=== PATIENT | male | born 1965 | race Caucasian/White ===

== ENCOUNTER 2016-04-09 12:17 | Observation (INO) | payer MEDICARE, OTHER ==
[2016-04-09] MEDS ORDERED: HYDROmorphone 1 MG/ML 1 ML SYRINGE IVP STA ×2 (13:03→14:08)
[2016-04-09] MEDS ORDERED: SODIUM CHLORIDE 0.9% 1,000 ML IV ONE (13:03)
[2016-04-09] MEDS ORDERED: ONDANSETRON 4 MG/2 ML VIAL IVP STA (13:03)
--- NOTE | 2016-04-09 13:36 | ED ---
Abdominal Pain HPI - General Chief Complaint: Abdominal Pain Stated Complaint: Abdominal Pain Time Seen by Provider: 04/09/16 12:50 Source: patient Mode of arrival: ambulatory Limitations: no limitations - History of Present Illness Initial Comments: Is a 51-year-old male with a history of chronic pancreatitis secondary to alcohol abuse who presents emergency department for epigastric abdominal pain. He states is been going on for the last day and worsening. He is also had some nausea and vomiting. He is typically on Percocet and Zofran at home however he states that these medications have not been working. He denies any blood in the vomit. He denies any constipation or or obstipation. He denies any fevers or chills. He does have history of herpes however denies any current outbreaks. He does have a rash on his abdomen which she gets just prior to his herpes outbreaks however. He denies any itching. States that the pain is typical for his pancreatitis. - Related Data Home Medications Medication Instructions Recorded Confirmed Lipase/Protease/Amylase [Brien Samuel 2 cap PO AC-TID 12/07/13 04/09/16 24,000 Units Capsule] Metoprolol Tartrate [Lopressor] 25 mg PO BID 12/07/13 04/09/16 Omeprazole [PriLOSEC] 20 mg PO AC-BID 12/07/13 04/09/16 Ondansetron HCl 8 mg PO Q8HR PRN 12/07/13 04/09/16 oxyCODONE HCL/ACETAMINOPHEN 1 tab PO Q6H PRN 12/07/13 04/09/16 [Oxycodone-Acetaminophen 10-325] Butalb/Acetaminophen/Caffeine 1 tab PO Q8H PRN 11/06/15 04/09/16 [Banjco-Wexqwduo-Tpwa 50-325-40] Promethazine [Phenergan] 25 mg PO Q6H PRN 04/09/16 04/09/16 busPIRone HCl [Buspar] 5 mg PO TID 04/09/16 04/09/16 Allergies Allergy/AdvReac Type Severity Reaction Status Date / Time latex Allergy Unknown Verified 04/09/16 13:04 Review of Systems ROS Statement: Those systems with pertinent positive or pertinent negative responses have been documented in the HPI. ROS Other: All systems not noted in ROS Statement are negative. Past Medical History Past Medical History: GERD/Reflux, Hypertension, Pneumonia Additional Past Medical History / Comment(s): PANCREATITS, LUNG NODULES, BLOOD CLOT RT ARM, ARTHRITIS, PAST ULCER,MIGRAINES, HANDS /FEET ALWAYS FEEL COLD. genital herpes History of Any Multi-Drug Resistant Organisms: None Reported Past Surgical History: Adenoidectomy, Tonsillectomy Additional Past Surgical History / Comment(s): ,FEEDING TUBE/AND REMOVAL, LH HAND TRIGGER THUMB SX, EGD in 2010. MRCP. Past Anesthesia/Blood Transfusion Reactions: No Reported Reaction Past Psychological History: Anxiety, Depression Smoking Status: Current every day smoker Past Alcohol Use History: None Reported Additional Past Alcohol Use History / Comment(s): STARTEED SMOKING AT AGE 18, SMOKES 1 PPD, GIEVN A SMOKING CESSATION BOOKLET.PT STATED USED TO DRINK 6-12 BEERS PER DAY QUIT APPROX 2005 Past Drug Use History: None Reported Additional Drug Use History / Comment(s): MEDICAL MARIJUANA - Past Family History Father Additional Family Medical History / Comment(s): AT AGE 56 LUNG CANCER, SMOKED 1PPD AND WORKED A [employer]. Mother Family Medical History: COPD General Exam - General Exam Comments Initial Comments: Constitutional: Awake alert Appears comfortable Head: Normocephalic atraumatic Eyes: no conjunctival injection No scleral icterus EOMI Neck: No JVD Supple Heart: Regular rate rhythm normal S1-S2 no murmurs Lungs: Clear to auscultation bilaterally No wheezing No rales Abdomen: Soft nondistended entered a palpation in the epigastric region without rebound or guarding Extremities: Non edematous DP pulses intact Radial pulses intact Neuro: A&Ox3 No focal neurologic deficits Psych: Appropriate mood and affect Limitations: no limitations Course Vital Signs 04/09/16 04/09/16 04/09/16 12:44 13:17 14:00 Temperature 98.2 F 98.2 F 98.2 F Pulse Rate 61 83 56 L Respiratory 18 16 16 Rate Blood Pressure 138/90 106/68 97/59 O2 Sat by Pulse 100 100 100 Oximetry Medical Decision Making - Medical Decision Making Is a 51-year-old male with a history of chronic pancreatitis who presents emergency department for epigastric pain. He does not feel significantly better after IV opiate medications. He is still nauseated and unable to keep down by mouth fluids after antiemetics. This time I feel that he needs to come in for IV fluids and nothing by mouth. I spoke with Dr. Hill except admission. - Lab Data Result diagrams: 04/09/16 13:00 04/09/16 13:00 Lab Results 04/09/16 04/09/16 Range/Units 13:00 13:00 WBC 8.5 (3.8-10.6) k/uL RBC 4.58 (4.30-5.90) m/uL Hgb 14.4 (13.0-17.5) gm/dL Hct 43.2 (39.0-53.0) % MCV 94.2 (80.0-100.0) fL MCH 31.5 (25.0-35.0) pg MCHC 33.4 (31.0-37.0) g/dL RDW 12.8 (11.5-15.5) % Plt Count 264 (150-450) k/uL Neutrophils % 68 % Lymphocytes % 23 % Monocytes % 4 % Eosinophils % 3 % Basophils % 1 % Neutrophils # 5.8 (1.3-7.7) k/uL Lymphocytes # 1.9 (1.0-4.8) k/uL Monocytes # 0.4 (0-1.0) k/uL Eosinophils # 0.2 (0-0.7) k/uL Basophils # 0.0 (0-0.2) k/uL Sodium 140 (137-145) mmol/L Potassium 5.0 (3.5-5.1) mmol/L Chloride 106 (98-107) mmol/L Carbon Dioxide 24 (22-30) mmol/L Anion Gap 10 mmol/L BUN 13 (9-20) mg/dL Creatinine 1.14 (0.66-1.25) mg/dL Est GFR (MDRD) Af Amer >60 (>60 ml/min/1.73 sqM) Est GFR (MDRD) Non-Af >60 (>60 ml/min/1.73 sqM) Glucose 100 H (74-99) mg/dL Calcium 9.3 (8.4-10.2) mg/dL Total Bilirubin 0.4 (0.2-1.3) mg/dL AST 18 (17-59) U/L ALT 24 (21-72) U/L Alkaline Phosphatase 65 (38-126) U/L Total Protein 6.8 (6.3-8.2) g/dL Albumin 3.9 (3.5-5.0) g/dL Amylase 129 H (30-110) U/L Lipase 687 H (23-300) U/L Serum Alcohol <10 mg/dL Disposition Clinical Impression: Chronic pancreatitis, Intractable abdominal pain Disposition: ADMITTED IP TO THIS [facility] Condition: Stable
[2016-04-09 13:40] LABS: Basophils % (A) 1 %; CH 31.5; CHCM 33.5; Eosinophils # (A) 0.2 k/uL (0-0.7); Eosinophils % (A) 3 %; HCT 43.2 % (39.0-53.0); HDW 2.33; HGB 14.4 gm/dL (13.0-17.5); Luc # (Auto) 0.17; Luc % (Auto) 2; Lymphocytes # (A) 1.9 k/uL (1.0-4.8); Lymphocytes % (A) 23 %; MCH 31.5 pg (25.0-35.0); MCHC 33.4 g/dL (31.0-37.0); MCV 94.2 fL (80.0-100.0); Monocytes # (A) 0.4 k/uL (0-1.0); Monocytes % (A) 4 %; Neutrophils # (A) 5.8 k/uL (1.3-7.7); Neutrophils % (A) 68 %; RBC 4.58 m/uL (4.30-5.90); RDW 12.8 % (11.5-15.5); WBC 8.5 k/uL (3.8-10.6); WBC (Perox) 8.68
--- NOTE | 2016-04-09 13:49 | XR ---
EXAMINATION TYPE: XR abdomen complete w decub DATE OF EXAM: 04/09/2016 1:41 PM COMPARISON: 11/06/2015 HISTORY: Upper abdominal quadrant pain and vomiting TECHNIQUE: Single view of the chest and 2 views of the abdomen are submitted. FINDINGS: There is no evidence for pneumoperitoneum. The bowel gas pattern is nonspecific. Surgical clips in the right upper quadrant noted. Arthropathy of the hip joints noted. Surgical clip in the pelvis noted and nonspecific calcifications are seen. Appears stable from previous exam and li tashia vascular. IMPRESSION: Nonspecific abdomen
[2016-04-09 13:51] LABS: ALT 24 U/L (21-72); AST 18 U/L (17-59); Alcohol <10 mg/dL; Alkaline Phosphatase 65 U/L (38-126); Amylase 129 U/L (30-110); Anion Gap 10 mmol/L; Blood Urea Nitrogen 13 mg/dL (9-20); Calcium 9.3 mg/dL (8.4-10.2); Carbon Dioxide 24 mmol/L (22-30); Chloride 106 mmol/L (98-107); Glucose 100 mg/dL (74-99); Non-African American GFR(MDRD) >60 (>60 ml/min/1.73 sqM); Sodium 140 mmol/L (137-145); Total Bilirubin 0.4 mg/dL (0.2-1.3); Total Protein 6.8 g/dL (6.3-8.2)
[2016-04-09] MEDS ORDERED: NALOXONE 0.4 MG/ML 1 ML VIAL IV PRN (14:46)
[2016-04-09] MEDS: SODIUM CHLORIDE 0.9% 1,000 ML IV SCH ×2 (15:03→22:25)
[2016-04-09] MEDS: LIPASE 5,000/PROTEASE 17,000/AMYLASE 27,0000 PO SCH (17:03)
[2016-04-09] MEDS: busPIRone HCl 5 MG TAB PO SCH ×2 (17:03→22:25)
[2016-04-09] MEDS: HYDROmorphone 1 MG/ML 1 ML SYRINGE IV PRN ×3 (17:37→23:55)
[2016-04-09] MEDS: ONDANSETRON 4 MG/2 ML VIAL IVP PRN (20:28)
[2016-04-09] MEDS: METOPROLOL TARTRATE 25 MG TAB PO SCH (22:25)
[2016-04-10] MEDS: HYDROmorphone 1 MG/ML 1 ML SYRINGE IV PRN ×3 (03:10→08:55)
[2016-04-10] MEDS: SODIUM CHLORIDE 0.9% 1,000 ML IV SCH ×3 (05:19→15:25)
[2016-04-10] MEDS: LIPASE 5,000/PROTEASE 17,000/AMYLASE 27,0000 PO SCH ×3 (08:01→17:34)
[2016-04-10] MEDS: busPIRone HCl 5 MG TAB PO SCH ×2 (08:03→15:24)
[2016-04-10] MEDS: METOPROLOL TARTRATE 25 MG TAB PO SCH (08:03)
[2016-04-10 08:37] VITALS: RESP 16
[2016-04-10] MEDS: ONDANSETRON 4 MG/2 ML VIAL IVP PRN (08:56)
[2016-04-10] MEDS ORDERED: METOPROLOL TARTRATE 12.5 MG TAB PO SCH (10:11)
[2016-04-10] MEDS ORDERED: BUTALB/APAP/CAFF 50-325-40MG TAB PO PRN (10:12)
[2016-04-10] MEDS ORDERED: PANTOPRAZOLE 40 MG/10 ML VIAL IVP SCH (10:15)
--- NOTE | 2016-04-10 11:45 | HP ---
DATE OF ADMISSION: Patient is a 51-year-old gentleman with a history of previous pancreatitis in the past and patient follows at [facility]. Patient apparently had alcoholic pancreatitis, used to be an alcoholic. Quit alcohol in 2009. Patient does not have his gallbladder anymore. He came in with complaints of epigastric abdominal pain, sharp, 9/10 in severity, radiating to the back, associated with some nausea, and patient has elevated lipase of 687, not high enough to say pancreatitis. No history of diabetes mellitus. His symptoms did improve. Will advance the diet. My suspicion is low for pancreatitis. Patient may have gastritis. Patient will be started on Protonix. If patient is able to tolerate soft diet by evening, patient will be discharged. The patient does have lipase elevation and amylase elevation, but they are not high enough to say pancreatitis. If patient is not able to tolerate his diet, will hold his discharge and will repeat lipase tomorrow. Patient is on pancreatic enzyme supplementation as well. That can increase the lipase. Home medications include: Creon supplementation, metoprolol, omeprazole, ondansetron, oxycodone, acetaminophen, Fioricet, Phenergan, buspirone. ALLERGIES: ALLERGIC TO LATEX. REVIEW OF SYSTEMS: CONSTITUTIONAL: No fever, no malaise, no fatigue. HEENT: No recent visual problems or hearing problems. Denied any sore throat. CARDIOVASCULAR: No chest pain, orthopnea, PND, no palpitations, no syncope. PULMONARY: No shortness of breath, no cough, no hemoptysis. GASTROINTESTINAL: As described in HPI. Patient denied any diarrhea. NEUROLOGICAL: No headaches, no weakness, no numbness. HEMATOLOGICAL: Denies any bleeding or petechiae. GENITOURINARY: Denies any burning micturition, frequency, or urgency. MUSCULOSKELETAL/RHEUMATOLOGICAL: Denies any joint pain, swelling, or any muscle pain. ENDOCRINE: Denies any polyuria or polydipsia. The rest of the 14 point review of systems is negative. PAST MEDICAL HISTORY: Gastroesophageal reflux disease, hypertension, pneumonia, previous history of pancreatitis, adenoidectomy, tonsillectomy, cholecystectomy in the past. Anxiety, depression. SOCIAL HISTORY: The patient does smoke. Denied any present alcohol abuse. He used to drink 6 to 12 beers a day, quit drinking in 2009. Occasional use of marijuana. Patient does use medical marijuana. FAMILY HISTORY: Father at age 56 of lung cancer. PHYSICAL EXAMINATION: GENERAL: The patient is alert and oriented x3, not in any acute distress. Well developed, well nourished. HEENT: Pupils are round and equally reacting to light. EOMI. No scleral icterus. No conjunctival pallor. Normocephalic, atraumatic. No pharyngeal erythema. No thyromegaly. CARDIOVASCULAR: S1 and S2 present. No murmurs, rubs, or gallops. PULMONARY: Chest is clear to auscultation, no wheezing or crackles. ABDOMEN: Abdomen is soft, nondistended, good bowel sounds. Patient does have minimal epigastric abdominal tenderness. MUSCULOSKELETAL: No joint swelling or deformity. EXTREMITIES: No cyanosis, clubbing, or pedal edema. NEUROLOGICAL: Gross neurological examination did not reveal any focal deficits. SKIN: No rashes. LABORATORY DATA: CBC and CMP are abnormal for mildly elevated amylase and lipase. ASSESSMENT AND PLAN: 1. Epigastric abdominal pain. Possibility of pancreatitis is low. If he is able to tolerate diet, patient will be discharged on Prilosec which he is taking twice a day. 2. Hypertension. Patient is on metoprolol. Patient's, actually, blood pressure is on the low-normal side along with mild bradycardia. Because of which I will cut down the metoprolol to 12.5 instead of 25 b.i.d. My suspicion is low that patient is actually diabetic. 3. Chronic pancreatitis for which patient is on pancreatic enzyme supplementation which will be continued. 4. Chronic pain syndrome. 5. Depression. 6. Alcohol abuse history in the past.
[2016-04-10] MEDS: oxyCODONE-APAP 10-325MG 1 EACH TAB PO PRN ×2 (12:33→17:34)
[2016-04-10 16:25] VITALS: BP 144/90; PULSE 60; TEMP 97
== END 2016-04-10 18:55 | disposition home or self-care (01) ==
LOC: EC 12:17 → 4MS4W 14:47
PROVIDERS: ADMIT Internal Medicine; ATTEND Internal Medicine
DX: R10.13 Epigastric pain (principal); K86.0 Alcohol-induced chronic pancreatitis; F12.90 Cannabis use, unspecified, uncomplicated; F17.200 Nicotine dependence, unspecified, uncomplicated; F32.9 Major depressive disorder, single episode, unspecified; F41.9 Anxiety disorder, unspecified; G89.4 Chronic pain syndrome; I10 Essential (primary) hypertension; K21.9 Gastro-esophageal reflux disease without esophagitis; Z79.899 Other long term (current) drug therapy; Z79.891 Long term (current) use of opiate analgesic; R00.1 Bradycardia, unspecified; F10.10 Alcohol abuse, uncomplicated
CPT/HCPCS: 36415; 80053; 82150; 83690 ×2; 85025; 80320; 74020; 99285; 96374; 96375; 96376; 96361; G0378 ×2; J2405 ×2; J1170 ×2; C9113

== ENCOUNTER 2019-01-30 11:52 | Day surgery (SDC) | payer MEDICARE, OTHER ==
[2019-01-29 09:15] VITALS: BMI 25.0
[~2019-01-30 11:52] MED LIST: LACTATED RINGERS 1,000 ML IV SCH; LIDOCAINE 1% 20 ML VIAL (10MG/ML) FOR IV START INTRADERMA PRN
[2019-01-30 12:29] VITALS: TEMP 97.6
[2019-01-30] MEDS ORDERED: PROPOFOL 10 MG/ML 20 ML VIAL IV ONE (13:15)
--- NOTE | 2019-01-30 13:32 | P.PCN ---
Date of Procedure: 01/30/19 Procedure(s) Performed: BRIEF HISTORY: Patient is a 53-year-old pleasant white male scheduled for an elective colonoscopy as a part of evaluation of chronic intermittent diarrhea for the last [address] of the abdomen and pelvis done THAT showed thickening of the left colon suspicious for colitis. PROCEDURE PERFORMED: Colonoscopy with random biopsies. PREOPERATIVE DIAGNOSIS: Chronic intermittent diarrhea. IV sedation per Anesthesia. PROCEDURE: After informed consent was obtained, the patient, was brought into the endoscopy unit. IV sedation was administered by Anesthesia under continuous monitoring. Digital rectal examination was normal. Initially the Olympus CF-160 flexible video colonoscope was then inserted in the rectum, gradually advanced into the cecum without any difficulty. Careful examination was performed as the scope was gradually being withdrawn. Ileocecal valve and the appendiceal orifice were visualized and appeared normal. Prep was excellent. Mucosa of the cecum, ascending colon, transverse colon, descending colon, sigmoid colon, and rectum appeared normal. Biopsies were done from ascending and descending colon to rule out metastatic/collagenous colitis. Retroflexion was performed in the rectum and no lesions were seen. The patient tolerated the procedure well. IMPRESSION: Normal-appearing colon from rectum to cecum with no evidence of colitis or colorectal neoplasia. RECOMMENDATIONS: Findings of this examination were discussed with the patient as well as his family. He was advised to follow with the biopsy results. He can have a repeat screening colonoscopy in 10 years.
[2019-01-30 13:38] VITALS: RESP 18
[2019-01-30 13:49] VITALS: BP 113/74; PULSE 62
== END 2019-01-30 14:40 | disposition home or self-care (01) ==
LOC: ORWHC2ENDO 11:52
PROVIDERS: ATTEND Internal Medicine Gastroenterology
DX: K52.9 Noninfective gastroenteritis and colitis, unspecified (principal); F17.210 Nicotine dependence, cigarettes, uncomplicated; F32.9 Major depressive disorder, single episode, unspecified; K21.9 Gastro-esophageal reflux disease without esophagitis; Z79.1 Long term (current) use of non-steroidal anti-inflammatories (NSAID); Z79.899 Other long term (current) drug therapy; Z90.49 Acquired absence of other specified parts of digestive tract; Z87.19 Personal history of other diseases of the digestive system
CPT/HCPCS: 88305; 45380; J2704

== ENCOUNTER → 2021-10-09 | Outpatient (CLI) | payer MEDICARE, OTHER ==
[2021-10-09 10:01] VITALS: BP 150/86; PULSE 75; RESP 18; TEMP 97.8
--- NOTE | 2021-10-09 14:19 | P.PAINPG ---
PQRS Measure Charge Sheet Comment: HISTORY OF PRESENT ILLNESS: 56 yr old male as a referral from presents today w severe and chronic neck secondary to spinal stenosis, DDD, facet arthropathy for evaluation. Pt states his pain level is currently at 6/10 in intensity, constant, ache tight x 1 mo w radiation towards the L shoulder. Pain is provoked with rotation to the R, coughing Pain is alleviated slightly with PT 3 yrs ago, use of a massage pillow, heat, manual massage from his , medications (Percocet from Dr Huddleston), topicals, h ome stretching regimen, repositioning and rest. 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 L Hand Trigger Thumb, EGD/ Colonoscopy, MRCP. SH: Daily tobacco use, Quit ETOH abuse, +Cannabis use FH: Fa- Lung CA/ at age 58. Mo- COPD. All: Adhesive Tape Meds: See REVIEW OF ORGAN SYSTEMS: CONSTITUTIONAL: No fevers or chills. No recent weight loss. NEUROLOGICAL: + numbness and tingling along the distal extremities. No seizure disorders or headaches. MUSCULOSKELETAL: + pain PSYCHIATRIC: Denies current depression or suicidal thoughts. Physical Examinations : Constitutional : Cooperative , not in acute distress . Neurologic : Cranial nerve II to XII intact. No focal neurological deficits. Psychiatric : alert & oriented x 3. Matching mood & appropriate affect. Judgment & insight intact. Musculoskeletal : Cervical Spine Motor strength in the deltoid and biceps: Normal right side. Normal Left side Motor strength biceps and the wrist extensors: Normal right side . Normal left side Motor strength in the triceps muscle: Normal right side. Normal left side Deep tendon reflexes: Normal at the biceps. Normal at Brachioradialis. Normal at triceps Vertebral body tenderness to deep palpation over C6 Cervical facet loading test: positive bilaterally Spurling test: positive bilaterally Neck distraction test: positive bilaterally Randall sign: positive bilaterally Lumbar spine Motor strength lower extremities ,thigh and legs 5/5 Right side , 5/5 Left side Deep tendon reflexes : Normal Knee Jerk. Normal Ankle Jerk Vertebral body tenderness over Lumbar facet Loading Test: positive Right / positive Left Range of motion of the lumbar spine Flexion 30 degrees, extension 10 degrees Straight Leg Raise test: Left/ Right positive at degree Ari test: positive right / positive left. Severe tenderness over the Sacroiliac joint on the Right / Left sides Gaenslen test: positive bilaterally Seated flexion test: positive bilaterally. Sacral spine : Severe tenderness over the Sacroiliac j oint: right side / left side Range of motion: Flexion of the lumbar spine <60 degrees Range of motion: Extension of the lumbar spine <20 degrees Gaenslen's Test positive Yuniel's Test positive Ari test: positive right side / left side Thigh Thrust Test Sacral Thrust Test Imaging: MRI without contrast from 09/07/21 reviewed Assessment/ Plan : Cervical DDD, cervical stenosis Recommendation of RONAL C6-C7. May need a series of injections, up to 3 within a 6 mo period, for optimal pain relief. Risks, benefits of procedure discussed and patient verbalized understanding. Denies aspirin or anti- coagulant use or medical history of diabetes. Protocol for discontinuation/ continuation of medications rosi procedure discussed. All questions answered. I have spent greater than 30 minutes on patient care today. Dr Colindres was available by phone for the evaluation of this patient. The time was used to re view the medical records including relevant urine studies and Prescription history (MAPs), review of the available imaging, evaluation and examination of the patient, coordination of care with the medical staff and if applicable referring physicians, as well as creation of the medical record - Pain Location Left Neck Non-Pharmacological Interventions: Heat, Inactivity, Massage, Sitting Pharmacological Interventions: Medication, Scheduled Medication, Topical Medication PQRS Narrative: Smoking Status Current every day smoker Home Medications: Ambulatory Orders Omeprazole [PriLOSEC] 20 mg PO DAILY 12/07/13 ondansetron HCL [Zofran] 8 mg PO BID PRN 12/07/13 busPIRone HCl [Buspar] 10 mg PO TID 04/09/16 ARIPiprazole [Abilify] 5 mg PO DAILY@1500 01/29/19 FLUoxetine HCL [PROzac] 20 mg PO HS 01/29/19 Ibuprofen [Advil] 600 - 800 mg PO Q8HR PRN 01/29/19 Pregabalin [Lyrica] 75 mg PO BID 01/29/19 Topiramate [Trokendi Xr] 100 mg PO HS 01/29/19 oxyCODONE-APAP 10-325MG [Percocet 10-325 mg] 1 tab PO QID PRN 01/29/19 valACYclovir HCL [Valtrex] 500 mg PO BID PRN 01/29/19 Controlled Substance Measures - Controlled Substance Measures Is patient prescribed a controlled substance at discharge?: No
== END ==
LOC: PNWHC3 09:05
PROVIDERS: ATTEND Specialist
DX: M50.30 Other cervical disc degeneration, unspecified cervical region (principal); M48.02 Spinal stenosis, cervical region; I10 Essential (primary) hypertension; Z86.73 Personal history of transient ischemic attack (TIA), and cerebral infarction without residual deficits; F32.9 Major depressive disorder, single episode, unspecified; F41.9 Anxiety disorder, unspecified; M19.90 Unspecified osteoarthritis, unspecified site; Z91.048 Other nonmedicinal substance allergy status; F17.200 Nicotine dependence, unspecified, uncomplicated; K21.9 Gastro-esophageal reflux disease without esophagitis; Z79.899 Other long term (current) drug therapy
CPT/HCPCS: 99211

== ENCOUNTER 2021-10-24 12:02 | Day surgery (SDC) | payer MEDICARE, OTHER ==
[2021-10-23 12:29] VITALS: BMI 29.4
[2021-10-24] MEDS ORDERED: LIDOCAINE 1% (10MG/ML) FOR IV START INTRADERMA PRN (12:18)
[2021-10-24] MEDS ORDERED: LACTATED RINGERS 1,000 ML IV SCH (12:18)
[2021-10-24 12:31] VITALS: TEMP 97.8
[2021-10-24] MEDS ORDERED: fentaNYL (PF) 50 MCG/ML 2 ML AMP ONE (12:54)
[2021-10-24] MEDS ORDERED: DEXAMETHASONE SOD PHOSPHATE 10 MG/ML 1 ML VIAL ONE (12:54)
[2021-10-24] MEDS ORDERED: MIDAZOLAM 2 MG/2 ML VIAL ONE (12:54)
[2021-10-24] MEDS ORDERED: IOPAMIDOL M200 10 ML VIAL ONE (12:54)
--- NOTE | 2021-10-24 13:09 | P.PCN ---
Date of Procedure: 10/24/21 Procedure(s) Performed: . PROCEDURE 1. Cervical epidural steroid injection under fluoroscopic guidance, C6-7 (fluoroscopy images available in the radiology department ) 2. Cervical epidurogram. PREOPERATIVE DIAGNOSIS: 1- Cervical Degenerative Disc Diseases 2- Cervical spinal stenosis. POSTOPERATIVE DIAGNOSIS: : 1- Cervical Degenerative Disc Diseases , 2- Cervical spinal stenosis. ANESTHESIA: moderate sedation, with Versed 2 mg and Fentanyl 100 mcg. Sedation start time : 1257 Sedation end time : 1306 EBL 0 PROCEDURE INDICATION: The patient with neck pain and radiculitis unresponsive to conservative treatment consents for procedure. PROCEDURE DESCRIPTION / TECHNIQUE: The patient was seen and identified in the preoperative area. Risks, benefits, complications, including but not limited to infections ,bleeding , allergic reactions to the medications ,and not complete pain releife, and alternatives were discussed with the patient, the patient agreed to proceed with the procedure and signed the consent. Patient was taken to the OR and time out was completed. The patient was placed in the prone position on the procedure table. A pillow was placed under the patients chest to increase the cervical interlaminar space. The cervical area was prepped and draped in the usual sterile fashion. Vital signs were closely monitored during the procedure. Conscious sedation was used during the procedure to decrease patients anxiety. Using anterior-posterior fluoroscopy, the C6-7 interlaminar space was identified and the skin over this site was marked and then infiltrated with 1% lidocaine subcutaneously. Subsequently, a 20-gauge 3-1/2-inch Tuohy epidural needle was inserted and advanced toward the epidural space by means of the ``hanging-drop technique and guided by AP and lateral fluoroscopy. The correct needle position in the epidural space was verified with the injection of 2 mL of the water soluble contrast dye Isovue-200 and observing an excellent epidurogram with the epidural spread of the dye, after negative aspiration for blood and CSF and in the absence of paresthesias. then, mixture containing 20 mg Dexamethasone and 2 ml of preservative-free normal saline injected and a washout of epidurogram was seen. Needle was withdrawn intact, skin was cleansed, and bandages were applied. Complications= none. Disposition= patient was placed in supine position and transferred to the recovery room area in stable condition and there was no evidence of upper or lower extremity motor or sensory deficit after the procedure patient was discharged from recovery room after discharge criteria met and home discharge instructions was given by the staff and patient will follow with the pain clinic in 2-4 weeks
[2021-10-24] MEDS ORDERED: IV FLUID CONTINUATION 1,000 ML IV ONE (13:13)
[2021-10-24 13:15] VITALS: RESP 16
--- NOTE | 2021-10-24 13:18 | FL ---
EXAMINATION TYPE: FL guided pain mgmt statistic DATE OF EXAM: 10/24/2021 HISTORY: Fluoroscopy time 3 seconds of fluoroscopy provided. IMPRESSION: 1. Fluoroscopy time.
[2021-10-24 13:28] VITALS: BP 114/79; PULSE 68
== END 2021-10-24 13:50 | disposition home or self-care (01) ==
LOC: ORPAIN 12:02
PROVIDERS: ATTEND Specialist
DX: M50.123 Cervical disc disorder at C6-C7 level with radiculopathy (principal); M48.02 Spinal stenosis, cervical region
CPT/HCPCS: 62321; J2250; J1100; J3010; Q9966

== ENCOUNTER → 2021-11-06 | Outpatient (CLI) | payer MEDICARE, OTHER ==
[2021-11-06 09:42] VITALS: BP 138/95; PULSE 74; RESP 16; TEMP 98
--- NOTE | 2021-11-06 16:18 | P.PAINPG ---
PQRS Measure Charge Sheet Comment: A 56 yr old male with a history of severe and chronic neck pain secondary to cervical degenerative disc diseases and spondylosis with facet arthropathy without myelopathy presents today for evaluation s/p JOAQUIN C6-C7. Pt states he experienced 50% pain relief x 2 wks s/p procedure. Pain level is currently at 7/10 in intensity, constant, localized in the L lower cervical spine, achy in character w shooting towards the L shoulder. Pain is provoked by hyperextension. Pain is alleviated with medications, topicals, injections, alternating heat and ice, physical therapy in 2019, home exercise regimen as tolerated, repositioning and rest. Interventional pain procedures completed include JOAQUIN C6-C7 x1 Patient is currently on Percocet, Lyrica, Robaxin Patient denies any side effects of the medication(s), denies excessive drowsiness or sleepiness, denies suicidal ideation and reports that the current pain medication is helping to control the pain and improve activities of daily living. Patient denies any motor or sensory deficits. Patient denies any fever or night sweats, denies any change in the bowel movements or urination. Physical Examination: -Constitutional: Cooperative. Not in acute distress . - Neurologic: Cranial nerve II to XII intact. No focal neurological deficits. - Psychatric: Alert & oriented x 3. Matching mood & appropriate affect. Judgment and insight intact. - Musculoskeletal: Cervical spine: Muscle bulk/ tone/ strength in the bilateral upper extremities normal Vertebral body tenderness to palpation over C6 Spurling test positive Distraction test positive Facet loading test positive Thoracic spine Muscle bulk / tone/ strength in the bilateral paraspinal muscles normal Vertebral body tender to palpation over Facet loading test positive Lumbar spine: Motor bulk/ tone/ strength lower extremities , thigh and legs : 5/5 Deep tendon reflexes : Normal Knee Jerk. Normal Ankle Jerk . Vertebral body tenderness to palpation over Lumbar Facet Loading Test positive Straight Leg Raise: positive at 30 degrees right side/ left side Gaenslen's Test positive Sacral spine : Severe tenderness over the Sacroiliac joint: right side / left side Range of motion: Flexion of the lumbar spine <60 degrees Range of motion: Extension of the lumbar spine <20 degrees Gaenslen's Test positive Yuniel's Test positive Ari test: positive right side / left side Thigh Thrust Test Sacral Thrust Test Assessment and plan: Chronic neck pain secondary to cervical degenerative disc disease , spondylosis with facet arthropathy without myelopathy Recommendation of JOAQUIN C6-C7 #2. May need a series of injections, up to 3 within a six-month timeframe, for optimal pain relief. Risks, benefits of procedure discussed and pt verbalized understanding. Denies anticoagulant use or medical history of diabetes. All patient questions answered MAPS reviewed and it was appropriate. I have spent less than 30 minutes on patient care today. Dr Colindres was available by phone for the evaluation of this patient. The time was used to review the medical records including relevant urine studies and Prescription history (MAPs), review of the available imaging, evaluation and examination of the patient, coordination of care with the medical staff and if applicable referring physicians, as well as creation of the medical record PQRS Narrative: Smoking Status Current every day smoker Hx Alcohol Use (MH) No Home Medications: Ambulatory Orders Omeprazole [PriLOSEC] 20 mg PO DAILY 12/07/13 ondansetron HCL [Zofran] 8 mg PO BID PRN 12/07/13 busPIRone HCl [Buspar] 10 mg PO TID 04/09/16 ARIPiprazole [Abilify] 5 mg PO DAILY@1500 01/29/19 FLUoxetine HCL [PROzac] 20 mg PO HS 01/29/19 Ibuprofen [Advil] 600 - 800 mg PO Q8HR PRN 01/29/19 Pregabalin [Lyrica] 75 mg PO BID 01/29/19 oxyCODONE-APAP 10-325MG [Percocet 10-325 mg] 1 tab PO QID PRN 01/29/19 valACYclovir HCL [Valtrex] 500 mg PO BID PRN 01/29/19 Controlled Substance Measures - Controlled Substance Measures Is patient prescribed a controlled substance at discharge?: No
== END ==
LOC: PNWHC3 09:26
PROVIDERS: ATTEND Specialist
DX: M50.30 Other cervical disc degeneration, unspecified cervical region (principal); M47.812 Spondylosis without myelopathy or radiculopathy, cervical region; G89.29 Other chronic pain; Z91.048 Other nonmedicinal substance allergy status; F17.200 Nicotine dependence, unspecified, uncomplicated
CPT/HCPCS: 99211

== ENCOUNTER 2021-11-23 11:37 | Day surgery (SDC) | payer MEDICARE, OTHER ==
[2021-11-23 11:52] VITALS: TEMP 97.8
[2021-11-23] MEDS ORDERED: LACTATED RINGERS 1,000 ML IV ONE (11:54)
[2021-11-23] MEDS ORDERED: MIDAZOLAM 2 MG/2 ML VIAL ONE (12:59)
[2021-11-23] MEDS ORDERED: IOPAMIDOL M200 10 ML VIAL ONE (12:59)
[2021-11-23] MEDS ORDERED: DEXAMETHASONE SOD PHOSPHATE 10 MG/ML 1 ML VIAL ONE (12:59)
[2021-11-23] MEDS ORDERED: fentaNYL (PF) 50 MCG/ML 2 ML AMP ONE (12:59)
--- NOTE | 2021-11-23 13:12 | P.PCN ---
Date of Procedure: 11/23/21 Procedure(s) Performed: PROCEDURE 1. Cervical epidural steroid injection under fluoroscopic guidance, C6-7 (fluoroscopy images available in the radiology department ) 2. Cervical epidurogram. PREOPERATIVE DIAGNOSIS: 1- Cervical Degenerative Disc Diseases 2- Cervical spinal stenosis. POSTOPERATIVE DIAGNOSIS: : 1- Cervical Degenerative Disc Diseases , 2- Cervical spinal stenosis. ANESTHESIA: moderate sedation, with Versed 2 mg and Fentanyl 100 mcg. Sedation start time : 1303 Sedation end time : 1311 EBL 0 PROCEDURE INDICATION: The patient with neck pain and radiculitis unresponsive to conservative treatment consents for procedure. PROCEDURE DESCRIPTION / TECHNIQUE: The patient was seen and identified in the preoperative area. Risks, benefits, complications, including but not limited to infections ,bleeding , allergic reactions to the medications ,and not complete pain releife, and alternatives were discussed with the patient, the patient agreed to proceed with the procedure and signed the consent. Patient was taken to the OR and time out was completed. The patient was placed in the prone position on the procedure table. A pillow was placed under the patients chest to increase the cervical interlaminar space. The cervical area was prepped and draped in the usual sterile fashion. Vital signs were closely monitored during the procedure. Conscious sedation was used during the procedure to decrease patients anxiety. Using anterior-posterior fluoroscopy, the C6-7 interlaminar space was identified and the skin over this site was marked and then infiltrated with 1% lidocaine subcutaneously. Subsequently, a 20-gauge 3-1/2-inch Tuohy epidural needle was inserted and advanced toward the epidural space by means of the ``hanging-drop technique and guided by AP and lateral fluoroscopy. The correct needle position in the epidural space was verified with the injection of 2 mL of the water soluble contrast dye Isovue-200 and observing an excellent epidurogram with the epidural spread of the dye, after negative aspiration for blood and CSF and in the absence of paresthesias. then, mixture containing 20 mg Dexamethasone and 2 ml of preservative-free normal saline injected and a washout of epidurogram was seen. Needle was withdrawn intact, skin was cleansed, and bandages were applied. Complications= none. Disposition= patient was placed in supine position and transferred to the recovery room area in stable condition and there was no evidence of upper or lower extremity motor or sensory deficit after the procedure patient was discharged from recovery room after discharge criteria met and home discharge instructions was given by the staff and patient will follow with the pain clinic in 2-4 weeks
[2021-11-23] MEDS ORDERED: IV FLUID CONTINUATION 1,000 ML IV ONE (13:19)
[2021-11-23 13:20] VITALS: RESP 16
--- NOTE | 2021-11-23 13:25 | FL ---
Fluoroscopy History: Cerv Epid Inj 6 sec fluoro. 1 image sent to PACS. Dr. Betts
[2021-11-23 13:38] VITALS: BP 113/77; PULSE 61
== END 2021-11-23 13:51 | disposition home or self-care (01) ==
LOC: ORPAIN 11:37
PROVIDERS: ATTEND Specialist
DX: M48.02 Spinal stenosis, cervical region (principal); M50.323 Other cervical disc degeneration at C6-C7 level
CPT/HCPCS: 99152; 62321; J2250; J1100; J3010; Q9966

== ENCOUNTER 2021-12-14 10:02 | Emergency (ER) | payer MEDICARE, OTHER ==
[2021-12-14] MEDS ORDERED: HYDROmorphone 0.5 MG/0.5 ML SYRINGE IVP STA ×2 (10:22→12:00)
[2021-12-14] MEDS ORDERED: ONDANSETRON 4 MG/2 ML VIAL IVP STA (10:22)
[2021-12-14] MEDS ORDERED: SODIUM CHLORIDE 0.9% 2,000 ML IV STA (10:22)
[2021-12-14 10:54] LABS: Appearance,Urine Clear (Clear); Bilirubin,Urine Negative (Negative); Blood,Urine Negative (Negative); Color,Urine Colorless; Glucose,Urine (UA) Negative (Negative); Ketones,Urine Negative (Negative); Leukocyte Esterase,Urine Negative (Negative); Nitrite,Urine Negative (Negative); PH, Urine 5.5 (5.0-8.0); Protein,Urine Negative (Negative); Specific Gravity,Urine 1.005 (1.001-1.035); Urobilinogen,Urine <2.0 mg/dL (<2.0)
[2021-12-14 10:56] LABS: Basophils # (A) 0.1 k/uL (0-0.2); Basophils % (A) 1 %; Eosinophils # (A) 0.4 k/uL (0-0.7); Eosinophils % (A) 4 %; HCT 40.7 % (39.0-53.0); HGB 13.6 gm/dL (13.0-17.5); Lymphocytes # (A) 2.1 k/uL (1.0-4.8); Lymphocytes % (A) 22 %; MCH 29.9 pg (25.0-35.0); MCHC 33.5 g/dL (31.0-37.0); MCV 89.4 fL (80.0-100.0); Mean Platelet Volume 7.9; Monocytes # (A) 0.4 k/uL (0-1.0); Monocytes % (A) 4 %; Neutrophils # (A) 6.5 k/uL (1.3-7.7); Neutrophils % (A) 67 %; Platelet Count 292 k/uL (150-450); RBC 4.55 m/uL (4.30-5.90); RDW 13.4 % (11.5-15.5); WBC 9.7 k/uL (3.8-10.6)
[2021-12-14 11:06] LABS: Albumin 3.9 g/dL (3.5-5.0); Calcium 8.7 mg/dL (8.4-10.2); Total Bilirubin 0.2 mg/dL (0.2-1.3); Total Protein 6.4 g/dL (6.3-8.2)
[2021-12-14 11:19] LABS: Potassium 4.1 mmol/L (3.5-5.1)
--- NOTE | 2021-12-14 11:45 | XR ---
EXAMINATION TYPE: XR KUB DATE OF EXAM: 12/14/2021 11:39 AM CLINICAL HISTORY: Upper abdominal pain TECHNIQUE: Two Upright KUB images of the abdomen are obtained. COMPARISON: Prior abdominal x-ray April 12, 2014 FINDINGS: Some paucity of bowel gas. Scattered gas seen in nondistended small and large bowel loops. Gas seen in nondistended stomach. Cholecystectomy clips redemonstrated. No free air. The lung bases r emain clear and the osseous structures are intact. Surgical clip in the left pelvis redemonstrated IMPRESSION: Overall nonspecific strongly favor nonobstructive bowel gas pattern.
[2021-12-14] MEDS ORDERED: PROCHLORPERAZINE INJ 10 MG/2 ML VIAL IVP STA (12:01)
[2021-12-14 12:54] VITALS: TEMP 98.1
--- NOTE | 2021-12-14 13:24 | ED ---
Abdominal Pain HPI - General Chief Complaint: Abdominal Pain Stated Complaint: ABD Pain,Nausea Time Seen by Provider: 12/14/21 10:21 Source: patient Mode of arrival: ambulatory Limitations: no limitations - History of Present Illness Initial Comments: Patient is a 56-year-old male with a history of chronic pancreatitis and cholecystectomy who presents to the emergency department with a chief complaint of abdominal pain. Patient reports aching pain in his left upper abdomen for the past 2 days with radiation to the back. Taking his prescribed Percocet with some relief. Reports this pain is typical of his pancreatitis. Reports nausea without vomiting. Denies fever, chills, vomiting, diarrhea, blood in stool. Last movement was this morning which patient states was normal. He denies recent alcohol use. Denies use of new medications. Denies chest pain and shortness of breath. - Related Data Home Medications Medication Instructions Recorded Confirmed Omeprazole [PriLOSEC] 20 mg PO DAILY 12/07/13 12/14/21 ondansetron HCL [Zofran] 8 mg PO BID PRN 12/07/13 12/14/21 busPIRone HCl [Buspar] 10 mg PO TID 04/09/16 12/14/21 ARIPiprazole [Abilify] 5 mg PO DAILY@1500 01/29/19 12/14/21 FLUoxetine HCL [PROzac] 20 mg PO HS 01/29/19 12/14/21 Pregabalin [Lyrica] 75 mg PO BID 01/29/19 12/14/21 oxyCODONE-APAP 10-325MG [Percocet 1 tab PO QID PRN 01/29/19 12/14/21 10-325 mg] valACYclovir HCL [Valtrex] 500 mg PO BID PRN 01/29/19 12/14/21 Previous Rx's Medication Instructions Recorded Ibuprofen [Motrin] 800 mg PO Q6HR PRN #30 tab 12/14/21 Prochlorperazine [Compazine] 10 mg PO Q6H PRN #12 tab 12/14/21 Allergies Allergy/AdvReac Type Severity Reaction Status Date / Time adhesive tape AdvReac Bandaids Verified 12/14/21 10:13 occ take skin off Review of Systems ROS Statement: Those systems with pertinent positive or pertinent negative responses have been documented in the HPI. ROS Other: All systems not noted in ROS Statement are negative. Past Medical History Past Medical History: GERD/Reflux, Hypertension, Osteoarthritis (OA), Pneumonia Additional Past Medical History / Comment(s): Chronic Pancreatitis, hx stomach ulcer, Lung nodules, hx Blood Clot RT Arm w/ PICC line, migraines, "tend to get NT hands/feet," genital herpes, Edentulous. Skin sensitive. colitis. History of Any Multi-Drug Resistant Organisms: None Reported Past Surgical History: Adenoidectomy, Cholecystectomy, Tonsillectomy Additional Past Surgical History / Comment(s): FEEDING TUBE/AND REMOVAL, Lt HAND TRIGGER THUMB SX, EGD in 2010, colonoscopy. ERCP. PICC LINE, SINCE REMOVED. Past Anesthesia/Blood Transfusion Reactions: No Reported Reaction, Motion Sickness Past Psychological History: Anxiety, Depression Smoking Status: Current every day smoker, Unknown if ever smoked Past Alcohol Use History: None Reported Past Drug Use History: Marijuana - Past Family History Father Family Medical History: Cancer Additional Family Medical History / Comment(s): AT AGE 56 LUNG CANCER, SMOKED 1PPD AND WORKED A [employer]. Mother Family Medical History: COPD Sister(s) Family Medical History: Pulmonary Embolus General Exam Limitations: no limitations General appearance: alert, in no apparent distress Respiratory exam: Present: normal lung sounds bilaterally. Absent: respiratory distress, wheezes, rales, rhonchi, stridor Cardiovascular Exam: Present: regular rate, normal rhythm, normal heart sounds. Absent: systolic murmur, diastolic murmur, rubs, gallop, clicks GI/Abdominal exam: Present: soft, tenderness (LUQ), normal bowel sounds. Absent: distended, guarding, rebound, rigid Back exam: Present: normal inspection, full ROM. Absent: tenderness Neurological exam: Present: alert, oriented X3, CN II-XII intact Psychiatric exam: Present: normal affect, normal mood Skin exam: Present: warm, dry, intact, normal color. Absent: rash Course Vital Signs 12/14/21 12/14/21 10:09 12:52 Temperature 97.8 F 98.1 F Pulse Rate 70 64 Respiratory 20 18 Rate Blood Pressure 148/88 107/74 O2 Sat by Pulse 100 98 Oximetry Medical Decision Making - Medical Decision Making This is a 56-year-old male presenting with left upper quadrant pain and nausea. Afebrile. Laboratory studies obtained. There is no leukocytosis. Lipase is elevated at 696. Amylase elevated at 195. Lactic acid within normal limits. Kidney function is relatively normal. KUB x-ray is negative for obstruction and other acute process. Pain and nausea controlled. With this, along with no fever, no leukocytosis, mildly elevated lipase and amylase, normal xray, it is reasonable for patient to manage symptoms at home. Discussed observation versus managing symptoms at home with patient and his . Patient would like to go home. Patient will be discharged with Motrin. Patient states Compazine works better for his pancreatitis flareups. Will send patient home with short prescription. Pancreatitis education provided in detail. Return parameters discussed. Dr. Morales is my attending. - Lab Data Result diagrams: 12/14/21 10:45 12/14/21 10:45 Lab Results 12/14/21 12/14/21 12/14/21 Range/Units 10:45 10:45 10:45 WBC 9.7 (3.8-10.6) k/uL RBC 4.55 (4.30-5.90) m/uL Hgb 13.6 (13.0-17.5) gm/dL Hct 40.7 (39.0-53.0) % MCV 89.4 (80.0-100.0) fL MCH 29.9 (25.0-35.0) pg MCHC 33.5 (31.0-37.0) g/dL RDW 13.4 (11.5-15.5) % Plt Count 292 (150-450) k/uL MPV 7.9 Neutrophils % 67 % Lymphocytes % 22 % Monocytes % 4 % Eosinophils % 4 % Basophils % 1 % Neutrophils # 6.5 (1.3-7.7) k/uL Lymphocytes # 2.1 (1.0-4.8) k/uL Monocytes # 0.4 (0-1.0) k/uL Eosinophils # 0.4 (0-0.7) k/uL Basophils # 0.1 (0-0.2) k/uL Sodium 137 (137-145) mmol/L Potassium 4.1 (3.5-5.1) mmol/L Chloride 103 (98-107) mmol/L Carbon Dioxide 26 (22-30) mmol/L Anion Gap 8 mmol/L BUN 19 (9-20) mg/dL Creatinine 1.27 H (0.66-1.25) mg/dL Est GFR (CKD-EPI)AfAm 74 (>60 ml/min/1.73 sqM) Est GFR (CKD-EPI)NonAf 64 (>60 ml/min/1.73 sqM) Glucose 96 (74-99) mg/dL Plasma Lactic Acid Héctor (0.7-2.0) mmol/L Calcium 8.7 (8.4-10.2) mg/dL Total Bilirubin 0.2 (0.2-1.3) mg/dL AST 22 (17-59) U/L ALT 15 (4-49) U/L Alkaline Phosphatase 78 (38-126) U/L Total Protein 6.4 (6.3-8.2) g/dL Albumin 3.9 (3.5-5.0) g/dL Amylase 195 H (30-110) U/L Lipase 696 H (23-300) U/L Urine Color Colorless Urine Appearance Clear (Clear) Urine pH 5.5 (5.0-8.0) Ur Specific [place] 1.005 (1.001-1.035) Urine Protein Negative (Negative) Urine Glucose (UA) Negative (Negative) Urine Ketones Negative (Negative) Urine Blood Negative (Negative) Urine Nitrite Negative (Negative) Urine Bilirubin Negative (Negative) Urine Urobilinogen <2.0 (<2.0) mg/dL Ur Leukocyte Esterase Negative (Negative) Serum Alcohol mg/dL 12/14/21 12/14/21 Range/Units 10:45 12:13 WBC (3.8-10.6) k/uL RBC (4.30-5.90) m/uL Hgb (13.0-17.5) gm/dL Hct (39.0-53.0) % MCV (80.0-100.0) fL MCH (25.0-35.0) pg MCHC (31.0-37.0) g/dL RDW (11.5-15.5) % Plt Count (150-450) k/uL MPV Neutrophils % % Lymphocytes % % Monocytes % % Eosinophils % % Basophils % % Neutrophils # (1.3-7.7) k/uL Lymphocytes # (1.0-4.8) k/uL Monocytes # (0-1.0) k/uL Eosinophils # (0-0.7) k/uL Basophils # (0-0.2) k/uL Sodium (137-145) mmol/L Potassium (3.5-5.1) mmol/L Chloride (98-107) mmol/L Carbon Dioxide (22-30) mmol/L Anion Gap mmol/L BUN (9-20) mg/dL Creatinine (0.66-1.25) mg/dL Est GFR (CKD-EPI)AfAm (>60 ml/min/1.73 sqM) Est GFR (CKD-EPI)NonAf (>60 ml/min/1.73 sqM) Glucose (74-99) mg/dL Plasma Lactic Acid Héctor 0.8 (0.7-2.0) mmol/L Calcium (8.4-10.2) mg/dL Total Bilirubin (0.2-1.3) mg/dL AST (17-59) U/L ALT (4-49) U/L Alkaline Phosphatase (38-126) U/L Total Protein (6.3-8.2) g/dL Albumin (3.5-5.0) g/dL Amylase (30-110) U/L Lipase (23-300) U/L Urine Color Urine Appearance (Clear) Urine pH (5.0-8.0) Ur Specific [place] (1.001-1.035) Urine Protein (Negative) Urine Glucose (UA) (Negative) Urine Ketones (Negative) Urine Blood (Negative) Urine Nitrite (Negative) Urine Bilirubin (Negative) Urine Urobilinogen (<2.0) mg/dL Ur Leukocyte Esterase (Negative) Serum Alcohol <10 mg/dL Disposition Clinical Impression: Abdominal pain, Nausea, Pancreatitis Disposition: HOME SELF-CARE Condition: Good Instructions (If sedation given, give patient instructions): Pancreatitis (ED), Clear Liquid Diet (ED) Additional Instructions: Continue clear liquid diet until significant improvement of symptoms. Then you may transition to low fat diet, gradually advance over 3-6 days as tolerated. Avoid drinking alcohol. Take medication as directed. Next dose of Compazine can be taken at 7 PM. Follow-up with GI specialist. Return to the emergency department if you experience new, concerning, or worsening symptoms. Prescriptions: Prochlorperazine [Compazine] 10 mg PO Q6H PRN #12 tab PRN Reason: Nausea Ibuprofen [Motrin] 800 mg PO Q6HR PRN #30 tab PRN Reason: Pain Is patient prescribed a controlled substance at d/c from ED?: No Referrals: Richard Borrero DO [Primary Care Provider] - 1-2 days
[2021-12-14 14:30] VITALS: BP 130/87; PULSE 87; RESP 16
== END 2021-12-14 14:30 | disposition home or self-care (01) ==
LOC: EC 10:02
DX: R10.9 Unspecified abdominal pain (principal); K85.90 Acute pancreatitis without necrosis or infection, unspecified; K21.9 Gastro-esophageal reflux disease without esophagitis; I10 Essential (primary) hypertension; M19.90 Unspecified osteoarthritis, unspecified site; F41.9 Anxiety disorder, unspecified; F32.A Depression, unspecified; F17.200 Nicotine dependence, unspecified, uncomplicated; F12.90 Cannabis use, unspecified, uncomplicated; Z88.8 Allergy status to other drugs, medicaments and biological substances; Z79.899 Other long term (current) drug therapy
CPT/HCPCS: 36415; 80053; 82150; 83605; 83690; 85025; 81003; 74018; 99284; 96374; 96375 ×2; 96376; 96361; G0480; J0780; J2405; J1170; 80320

== ENCOUNTER → 2021-12-14 | Outpatient (CLI) | payer MEDICARE, OTHER ==
[2021-12-14 09:52] VITALS: BP 131/90; PULSE 71; RESP 18; TEMP 98.1
--- NOTE | 2021-12-14 13:01 | P.PAINPG ---
PQRS Measure Charge Sheet Comment: A 56 yr old male with a history of severe and chronic low back pain secondary to lumbar degenerative disc diseases and lumbar spondylosis with facet arthropathy without myelopathy presents today for evaluation s/p JOAQUIN C6-C7 #2. Pt states he experienced 75% pain relief x 3 wks s/p procedure. Pain level is currently at 7/10 in intensity, constant, localized in the L lower cervical spine, dull/ achy in character w shooting towards the L shoulder. Pain is provoked by PT which is contraindicated by his surgeon, as well as rotation, coughing or hyperextension. Pain is alleviated with heat, ice, medications, repositioning and rest. Interventional pain procedures completed include JOAQUIN C6-C7 x2 Patient is currently on Percocet, Robaxin, Lyrica, Tylenol Patient denies any side effects of the medication(s), denies excessive drowsiness or sleepiness, denies suicidal ideation and reports that the current pain medication is helping to control the pain and improve activities of daily living. Patient denies any motor or sensory deficits. Patient denies any fever or night sweats, denies any change in the bowel movements or urination. Physical Examination: -Constitutional: Cooperative. Not in acute distress . - Neurologic: Cranial nerve II to XII intact. No focal neurological deficits. - Psychatric: Alert & oriented x 3. Matching mood & appropriate affect. Judgment and insight intact. - Musculoskeletal: Cervical spine: Muscle bulk/ tone/ strength in the bilateral upper extremities normal Vertebral body tenderness to palpation over C6 Spurling test positive Distraction test positive Facet loading test positive Thoracic spine Muscle bulk / tone/ strength in the bilateral paraspinal muscles normal Vertebral body tender to palpation over Facet loading test positive Lumbar spine: Motor bulk/ tone/ strength lower extremities , thigh and legs : 5/5 Deep tendon reflexes : Normal Knee Jerk. Normal Ankle Jerk . Vertebral body tenderness to palpation over Lumbar Facet Loading Test positive Straight Leg Raise: positive at 30 degrees right side/ left side Gaenslen's Test positive Sacral spine : Severe tenderness over the Sacroiliac joint: right side / left side Range of motion: Flexion of the lumbar spine <60 degrees Range of motion: Extension of the lumbar spine <20 degrees Gaenslen's Test positive Yuniel's Test positive Ari test: positive right side / left side Thigh Thrust Test Sacral Thrust Test Assessment and plan: Chronic low back pain secondary to lumbar degenerative disc disease , lum bar spondylosis with facet arthropathy without myelopathy Recommendation of JOAQUIN C6-C7 #3. May need a series of injections, up to 3 within a 6mo period, for optimal pain relief. Risks, benefits of procedure discussed and pt verbalized understanding. Denies anticoagulant use or medical history of diabetes. All patient questions answered I have spent less than 30 minutes on patient care today. Dr Colindres was available by phone for the evaluation of this patient. The time was used to review the medical records including relevant urine studies and Prescription history (MAPs), review of the available imaging, evaluation and examination of the patient, coordination of care with the medical staff and if applicable referring physicians, as well as creation of the medical record - Pain Location Left Upper Neck Non-Pharmacological Interventions: Heat, Ice, Inactivity, Position/Reposition Pharmacological Interventions: Epidural, PRN Medication, Scheduled Medication, Topical Medication PQRS Narrative: Smoking Status Current every day smoker Hx Alcohol Use (MH) No Home Medications: Ambulatory Orders Omeprazole [PriLOSEC] 20 mg PO DAILY 12/07/13 ondansetron HCL [Zofran] 8 mg PO BID PRN 12/07/13 busPIRone HCl [Buspar] 10 mg PO TID 04/09/16 ARIPiprazole [Abilify] 5 mg PO DAILY@1500 01/29/19 FLUoxetine HCL [PROzac] 20 mg PO HS 01/29/19 Pregabalin [Lyrica] 75 mg PO BID 01/29/19 oxyCODONE-APAP 10-325MG [Percocet 10-325 mg] 1 tab PO QID PRN 01/29/19 valACYclovir HCL [Valtrex] 500 mg PO BID PRN 01/29/19 Controlled Substance Measures - Controlled Substance Measures Is patient prescribed a controlled substance at discharge?: No
== END | disposition home or self-care (01) ==
LOC: PNWHC3 09:23
PROVIDERS: ATTEND Specialist
DX: M47.896 Other spondylosis, lumbar region (principal); M51.36 Other intervertebral disc degeneration, lumbar region
CPT/HCPCS: 99211

== ENCOUNTER 2022-01-02 12:48 | Day surgery (SDC) | payer MEDICARE, OTHER ==
[2022-01-02 13:26] VITALS: RESP 16; TEMP 97.5
[2022-01-02] MEDS ORDERED: LACTATED RINGERS 1,000 ML IV ONE (13:26)
[2022-01-02] MEDS ORDERED: DEXAMETHASONE SOD PHOSPHATE 10 MG/ML 1 ML VIAL ONE (13:46)
[2022-01-02] MEDS ORDERED: IOPAMIDOL M200 10 ML VIAL ONE (13:46)
[2022-01-02] MEDS ORDERED: MIDAZOLAM 2 MG/2 ML VIAL ONE (13:46)
[2022-01-02] MEDS ORDERED: fentaNYL (PF) 50 MCG/ML 2 ML AMP ONE (13:46)
[2022-01-02] MEDS ORDERED: IV FLUID CONTINUATION 1,000 ML IV ONE (14:24)
--- NOTE | 2022-01-02 14:25 | P.PCN ---
Date of Procedure: 01/02/22 Description of Procedure: Pre- and Post-operative Diagnosis: Cervical radiculopathy, cervical degenerative disc disease Procedure: C6-C7 Inter-Laminar Cervical Epidural Steroid Injection under biplanar fluoroscopy Surgeon: Pelon Dillon Anesthesia: Local: 1% Lidocaine, IV sedation : Versed 2 mg, and fentanyl 100 g Sedation supervision start time : 1349 sedation Supervision end time:1418 Complications: None. Estimated blood loss: None Specimens removed: None Fluoroscopic image: saved to electronic medical records. Indications for Procedure: The patient has been suffering from neck pain and pain radiating to the upper extremity . Inadequate pain control with pharmacologic regimen. An inter-laminar approach cervical epidural steroid injection was scheduled for the patient. Procedure and Findings: The patient was seen and examined in the holding area. The written informed consent was obtained after explaining the risks, benefits, alternatives of the procedure to the patient. The patient was brought to the procedure room and was placed in the prone position on the operating table. A pillow was placed under the upper chest. Standard anesthesia monitoring was done through out the procedure. Timeout was completed. The skin preparation was done with ChloraPrep 1 and draping was done in usual sterile fashion. Sterile technique was observed throughout the procedure. Under fluoroscopic guidance, the C6-C7 inter-laminar space was identified. 3 ml of 1% Lidocaine was injected with a 25 gauge needle to achieve adequate local anesthesia of the skin and subcutaneous tissue. A 20 gauge, 3.5 inch Tuohy type epidural needle was placed and gradually advanced up to the epidural space using loss of resistance technique and fluoroscopic guidance. Lateral, oblique fluoroscopic views confirm the needle position. No paresthesia was noted. A negative aspiration was confirmed and then 1 ml of Isovue-200 was injected. A good dye spread was seen in the epidural space and it was negative for any intrathecal, intraneural or intravascular spread. A total of 6 ml solution containing 10 mg Dexamethasone, and 5 ml preservative-free Normal Saline was injected slowly with intermittent aspiration. The needle was removed intact, area was cleaned and bandage was applied. Disposition : The patient tolerated the procedure very well. The patient was transferred to the recovery room and remained stable until discharged home. The patient was given detailed discharge instructions for bleeding, infection, increased pain at the injection site, and was advised to seek immediate medical attention should significant side effects develop. The patient will be followed up with our Pain Clinic within 4 weeks for follow-up visit.
[2022-01-02] MEDS ORDERED: LACTATED RINGERS 1,000 ML IV SCH (14:30)
[2022-01-02 14:43] VITALS: BP 121/84; PULSE 66
--- NOTE | 2022-01-02 15:22 | FL ---
Intraoperative/procedural fluoroscopic services were provided. Total fluoroscopy time is 37 seconds w ith a total of 4 submitted images to PACS. Please see the operative/procedural note for further detai ls.
== END 2022-01-02 15:12 | disposition home or self-care (01) ==
LOC: ORPAIN 12:48
DX: M50.123 Cervical disc disorder at C6-C7 level with radiculopathy (principal); K21.9 Gastro-esophageal reflux disease without esophagitis; F41.8 Other specified anxiety disorders; I10 Essential (primary) hypertension; M19.90 Unspecified osteoarthritis, unspecified site; K85.90 Acute pancreatitis without necrosis or infection, unspecified; G43.909 Migraine, unspecified, not intractable, without status migrainosus; Z90.89 Acquired absence of other organs; Z90.49 Acquired absence of other specified parts of digestive tract; Z98.890 Other specified postprocedural states; Z91.048 Other nonmedicinal substance allergy status
CPT/HCPCS: 62321; 99152; J2250; J1100; J3010; Q9966; 99153

== ENCOUNTER 2022-05-17 10:58 | Day surgery (SDC) | payer MEDICARE, OTHER ==
[2022-05-15 14:48] VITALS: BMI 29.4
[2022-05-17 11:18] VITALS: RESP 16; TEMP 97.7
[2022-05-17] MEDS ORDERED: LACTATED RINGERS 1,000 ML IV ONE (11:18)
[2022-05-17] MEDS ORDERED: fentaNYL (PF) 50 MCG/ML 2 ML AMP ONE (11:23)
[2022-05-17] MEDS ORDERED: DEXAMETHASONE SOD PHOSPHATE 10 MG/ML 1 ML VIAL ONE (11:23)
[2022-05-17] MEDS ORDERED: IOPAMIDOL M200 10 ML VIAL ONE (11:23)
[2022-05-17] MEDS ORDERED: MIDAZOLAM 2 MG/2 ML VIAL ONE (11:23)
[2022-05-17] MEDS ORDERED: LIDOCAINE 1% (10MG/ML) FOR IV START INTRADERMA PRN (11:32)
[2022-05-17] MEDS ORDERED: LACTATED RINGERS 1,000 ML IV SCH (11:32)
--- NOTE | 2022-05-17 11:32 | P.PCN ---
Date of Procedure: 05/17/22 Procedure(s) Performed: PROCEDURE 1. Cervical epidural steroid injection under fluoroscopic guidance, C6-7 (fluoroscopy images available in the radiology department ) 2. Cervical epidurogram. PREOPERATIVE DIAGNOSIS: 1- Cervical Degenerative Disc Diseases 2- Cervical spinal stenosis. POSTOPERATIVE DIAGNOSIS: : 1- Cervical Degenerative Disc Diseases , 2- Cervical spinal stenosis. ANESTHESIA: moderate sedation, with Versed 2 mg and Fentanyl 100 mcg. Sedation start time : 1125 Sedation end time : 1130 EBL 0 PROCEDURE INDICATION: The patient with neck pain and radiculitis unresponsive to conservative treatment consents for procedure. PROCEDURE DESCRIPTION / TECHNIQUE: The patient was seen and identified in the preoperative area. Risks, benefits, complications, including but not limited to infections ,bleeding , allergic reactions to the medications ,and not complete pain releife, and alternatives were discussed with the patient, the patient agreed to proceed with the procedure and signed the consent. Patient was taken to the OR and time out was completed. The patient was placed in the prone position on the procedure table. A pillow was placed under the patients chest to increase the cervical interlaminar space. The cervical area was prepped and draped in the usual sterile fashion. Vital signs were closely monitored during the procedure. Conscious sedation was used during the procedure to decrease patients anxiety. Using anterior-posterior fluoroscopy, the C6-7 interlaminar space was identified and the skin over this site was marked and then infiltrated with 1% lidocaine subcutaneously. Subsequently, a 20-gauge 3-1/2-inch Tuohy epidural needle was inserted and advanced toward the epidural space by means of the ``hanging-drop technique and guided by AP and lateral fluoroscopy. The correct needle position in the epidural space was verified with the injection of 2 mL of the water soluble contrast dye Isovue-200 and observing an excellent epidurogram with the epidural spread of the dye, after negative aspiration for blood and CSF and in the absence of paresthesias. then, mixture containing 20 mg Dexamethasone and 2 ml of preservative-free normal saline injected and a washout of epidurogram was seen. Needle was withdrawn intact, skin was cleansed, and bandages were applied. Complications= none. Disposition= patient was placed in supine position and transferred to the recovery room area in stable condition and there was no evidence of upper or lower extremity motor or sensory deficit after the procedure patient was discharged from recovery room after discharge criteria met and home discharge instructions was given by the staff and patient will follow with the pain clinic in 2-4 weeks
[2022-05-17] MEDS ORDERED: IV FLUID CONTINUATION 1,000 ML IV ONE (11:34)
[2022-05-17 11:50] VITALS: BP 120/82; PULSE 69
--- NOTE | 2022-05-17 12:01 | FL ---
Intraoperative/procedural fluoroscopic services were provided for cervical epidural steroid injection . Total fluoroscopy time is 1 second with a total of 1 submitted image to PACS. Total DAP [id number]. Pl ease see the operative note for further details.
== END 2022-05-17 12:19 | disposition home or self-care (01) ==
LOC: ORPAIN 10:58
PROVIDERS: ATTEND Specialist
DX: M50.123 Cervical disc disorder at C6-C7 level with radiculopathy (principal); M48.02 Spinal stenosis, cervical region; Z91.048 Other nonmedicinal substance allergy status
CPT/HCPCS: 62321; J2250; J1100; J3010; Q9966

== ENCOUNTER → 2022-06-18 | Outpatient (CLI) | payer MEDICARE, OTHER ==
[2022-06-18 09:41] VITALS: BP 173/104; PULSE 64; RESP 18; TEMP 98.1
--- NOTE | 2022-06-18 15:26 | P.PAINPG ---
PQRS Measure Charge Sheet Comment: A 57 yr old male w at side with a history of severe and chronic neck pain secondary to cervical DDD and spondylosis with facet arthropathy without myelopathy presents today for evaluation s/p JOAQUIN C6-C7. Pt states he experienced 75 % pain relief x 3-4 wks s/p procedure. Pain level is provoked at 8 /10 in intensity, constant, localized in the cervical spine, sore in character w shooting up towards the head. Pain is provoked by lifting, hyperextension. Pain is alleviated with injectinos, medications, topicals, THC products, heat, PT in 2018 & 2019, repositioning and rest. Interventional pain procedures completed include JOAQUIN C6-7 x4 (since Sep 2021) Patient is currently on Percocet 10/325mg, Lyrica 150mg BID Patient denies any side effects of the medication(s), denies excessive drowsiness or sleepiness, denies suicidal ideation and reports that the current pain medication is helping to control the pain and improve activities of daily living. Patient denies any motor or sensory deficits. Patient denies any fever or night sweats, denies any change in the bowel movements or urination. Physical Examination: -Constitutional: Cooperative. Not in acute distress . - Neurologic: Cranial nerve II to XII intact. No focal neurological deficits. - Psychatric: Alert & oriented x 3. Matching mood & appropriate affect. Judgment and insight intact. - Musculoskeletal: Cervical spine: Muscle bulk/ tone/ strength in the bilateral upper extremities normal Vertebral body tenderness to palpation over Spurling test positive Distraction test positive Facet loading test positive TTP Thoracic spine Muscle bulk / tone/ strength in the bilateral paraspinal muscles normal Vertebral body tender to palpation over Facet loading test positive TTP Lumbar spine: Motor bulk/ tone/ strength lower extremities , thigh and legs : 5/5 Deep tendon reflexes : Normal Knee Jerk. Normal Ankle Jerk . Vertebral body tenderness to palpation over Lumbar Facet Loading Test positive Straight Leg Raise: positive at 30 degrees right side/ left side Gaenslen's Test positive Sacral spine : Severe tenderness over the Sacroiliac joint: right side / left side Range of motion: Flexion of the lumbar spine <60 degrees Range of motion: Extension of the lumbar spine <20 degrees Gaenslen's Test positive R / L Ari test: positive right side / left side Thigh Thrust Test positive R / L Sacral Thrust Test positive R/ L Assessment and plan: Chronic neck pain secondary to cervical DDD, spondylosis with facet arthropathy without myelopathy Pt stated he will follow up w his orthopedic surgeon for additional treatment options. All questions answered. I have spent less than 30 minutes on patient care today. Dr Colindres was availab le by phone for the evaluation of this patient. The time was used to review the medical records including relevant urine studies and Prescription history (MAPs), review of the available imaging, evaluation and examination of the patient, coordination of care with the medical staff and if applicable referring physicians, as well as creation of the medical record PQRS Narrative: Smoking Status Current every day smoker Hx Alcohol Use (MH) No Home Medications: Ambulatory Orders ondansetron HCL [Zofran] 8 mg PO BID PRN 12/07/13 busPIRone HCl [Buspar] 10 mg PO TID 04/09/16 ARIPiprazole [Abilify] 5 mg PO DAILY@1500 01/29/19 FLUoxetine HCL [PROzac] 20 mg PO HS 01/29/19 Pregabalin [Lyrica] 75 mg PO BID 01/29/19 oxyCODONE-APAP 10-325MG [Percocet 10-325 mg] 1 tab PO QID PRN 01/29/19 valACYclovir HCL [Valtrex] 500 mg PO BID PRN 01/29/19 SUMAtriptan succinate [Imitrex] 25 mg PO ONCE PRN 12/28/21 Pantoprazole [Protonix] 40 mg PO DAILY 05/15/22 Rosuvastatin [Crestor] 10 mg PO DAILY 05/15/22 methocarbamoL [Robaxin] 1,000 mg PO Q8HR 05/15/22 Controlled Substance Measures - Controlled Substance Measures Is patient prescribed a controlled substance at discharge?: No
== END ==
LOC: PNWHC3 08:05
PROVIDERS: ATTEND Specialist
DX: M50.323 Other cervical disc degeneration at C6-C7 level (principal); M47.812 Spondylosis without myelopathy or radiculopathy, cervical region; G89.29 Other chronic pain; F17.200 Nicotine dependence, unspecified, uncomplicated; Z91.048 Other nonmedicinal substance allergy status
CPT/HCPCS: 99211